=== PATIENT | male | born 1975 | race Caucasian/White ===

== ENCOUNTER → 2018-06-29 | Outpatient (REF) | payer BC | LOC: M SFHCLERA 11:27 | PROVIDERS: ATTEND Nurse Practitioner Family | DX: R68.89 Other general symptoms and signs (principal) ==

== ENCOUNTER → 2018-06-29 | Outpatient (CLI) | payer BC ==
--- NOTE | 2018-06-29 11:37 | REP ---
Clinical: Flu-like symptoms . Comparison: None . Technique: PA and lateral. Findings: The mediastinum and cardiac silhouette are normal. The lung licona are clear and without acute consolidation, effusion, or pneumothorax. The skeletal structures are intact and normal. Impression: 1. No acute cardiopulmonary process. Electronically Signed by Trever Montoya MD 06/29/2018 11:28 A
== END ==
LOC: M LRY 11:19
PROVIDERS: ATTEND Nurse Practitioner Family
DX: R68.89 Other general symptoms and signs (principal)

== ENCOUNTER → 2019-12-19 | Outpatient (CLI) | payer BC ==
[~2019-12-19] MED LIST: NAPR-837 PO
--- NOTE | 2019-12-19 14:47 | REP ---
Five views right knee: 12/19/2019. Indication: Right knee pain. Comparison: 06/22/2014. Findings: There is no acute fracture, subluxation or dislocation. There is no joint effusion. No lytic or blastic lesions are present. Mild osteoarthritic/degenerative sequelae of the medial, lateral and patellofemoral compartments are redemonstrated and stable. Impression: No acute fracture. Electronically Signed by Fabian Echevarria DO 12/19/2019 02:39 P
== END ==
LOC: M WUC 12:50
PROVIDERS: ATTEND Nurse Practitioner Family
DX: M25.561 Pain in right knee (principal)

== ENCOUNTER 2019-12-22 10:16 | Emergency (ER) | payer BC ==
[~2019-12-22] VITALS: Ht 182.9 cm; Wt 156.8 kg
--- NOTE | 2019-12-22 11:43 | REP ---
RIGHT KNEE SERIES: Four views. HISTORY: Right knee pain and instability. COMPARISON STUDY: December 19, 2019. FINDINGS: There is mild medial compartment osteoarthritic joint space narrowing and spurring. There is subtle fullness in the suprapatellar bursa suggestive of a joint effusion. No erosive changes seen. No fracture or subluxation is noted. IMPRESSION: No acute bony abnormality. Mild medial compartment osteoarthritis and probable joint effusion. Electronically Signed by Ronan Mckeon MD 12/22/2019 12:29 P
[2019-12-22] MEDS ORDERED: NAPR-837 PO (11:49)
[2019-12-22 12:01] VITALS: BP 158/93
== END 2019-12-22 12:03 | disposition home or self-care (01) ==
LOC: EDBD 10:16 → M ED 10:16
DX: S83.101A Unspecified subluxation of right knee, initial encounter (principal); X58.XXXA Exposure to other specified factors, initial encounter; Y92.89 Other specified places as the place of occurrence of the external cause; M25.361 Other instability, right knee

== ENCOUNTER → 2019-12-24 | Outpatient (CLI) | payer BC ==
[2019-12-24 16:56] LABS: C REACTIVE PROTEIN QUANTITATIV 0.74 MG/DL (0.00-0.30); RHEUMATOID FACTOR QUANT < 10.0 IU/ML (<15.0); URIC ACID 5.8 MG/DL (3.5-7.2)
[2019-12-26 17:07] LABS: ANTINUCLEAR ANTIBODIES DIRECT Negative (Negative); Lyme Disease IgG/IgM Antibodie <0.91 ISR (0.00-0.90); Lyme Disease IgM Ab Quantitati <0.80 index (0.00-0.79)
== END ==
LOC: M LRY 11:12
PROVIDERS: ATTEND Physician Assistant
DX: S83.411A Sprain of medial collateral ligament of right knee, initial encounter (principal); Y92.9 Unspecified place or not applicable; Y93.9 Activity, unspecified; Y99.9 Unspecified external cause status

== ENCOUNTER 2021-11-06 11:58 | Emergency (ER) | payer BC ==
[~2021-11-06] VITALS: Ht 182.9 cm; Wt 173.0 kg
[2021-11-06 11:58] VITALS: BP 173/98
== END 2021-11-06 14:30 | disposition left against medical advice (07) ==
LOC: M ED 11:58
DX: Z53.29 Procedure and treatment not carried out because of patient's decision for other reasons (principal)